=== PATIENT | female | born 1965 | race African-American/Black ===

== ENCOUNTER 2017-09-26 12:37 | Day surgery (SDC) | payer OTHER ==
[~2017-09-26] VITALS: Ht 162.6 cm; Wt 82.1 kg
[~2017-09-26 12:37] MED LIST: ALTACE10 MG PO; ARIMIDEX1 MG PO; ASPIR 8181 MG PO; CALCIUM 600 +1 EA13 PO; CRESTOR10 MG PO; CRESTOR20 MG PO; EFFEXOR37.5 MG PO; GLUCOSAMINE CO1 EAC4 PO; HYDROCHLOROTHIA25 MG PO; NERLYNX40 MG PO; NORCO 5/3251 TABLET PO; NORVASC5 MG PO; TOPROL XL100 MG PO; VITAMIN D31000 UNI2 PO
[2017-09-26 13:09] VITALS: BP 133/75
[2017-09-26 16:15] VITALS: BP 143/82
[2017-09-26 16:35] VITALS: BP 140/60
== END 2017-09-26 17:10 | disposition home or self-care (01) ==
LOC: SDC 12:37
DX: G56.01 Carpal tunnel syndrome, right upper limb (principal); M65.311 Trigger thumb, right thumb; M79.5 Residual foreign body in soft tissue; I10 Essential (primary) hypertension; Z85.3 Personal history of malignant neoplasm of breast; Z95.1 Presence of aortocoronary bypass graft; Z88.5 Allergy status to narcotic agent; Z91.040 Latex allergy status; Z79.82 Long term (current) use of aspirin
CPT/HCPCS: 93005; J2250; J3010; J3301